=== PATIENT | male | born 1995 | race African-American/Black ===

== ENCOUNTER 2017-05-10 09:04 | Emergency (ER) | payer SELFPAY ==
[2017-05-10 10:17] VITALS: BP 142/83
--- NOTE | 2017-05-10 10:49 | RAD ---
INDICATION: Left wrist injury COMPARISON: None TECHNIQUE: AP, lateral, and oblique views were obtained. FINDINGS: The bony structures, joint spaces, and soft tissues are normal for age. IMPRESSION: NEGATIVE EXAMINATION.
--- NOTE | 2017-05-10 14:57 | ED ---
Upper Extremity Pain - HPI Summary HPI Summary: Patient presents to the ED with CC of left wrist pain after sustaining a mechanical fall yesterday with ETOH intoxication. He is able to rotate about the wrist and is able to flex and extend, but with pain. Pain is 8/0, constant and worse with movement and better with rest. Denies any visible swelling, numbness, tingling, temperature or color changes to the area. Denies any other pain, hitting his head or LOC. He has never injured the wrist before. He has been taking ibuprofen without much improvement of symptoms. - History of Current Complaint Chief Complaint: EDExtremityUpper Stated Complaint: FELL LEFT WRIST PAIN Time Seen by Provider: 05/10/17 09:43 Hx Obtained From: Patient Mechanism Of Injury: Twisted Onset/Duration: Started Hours Ago Timing: Constant Severity Initially: Moderate Severity Currently: Moderate Pain Location: Wrist Character: Aching Aggravating Factor(s): Movement, Lifting, Flexion, Extension, Internal/External Rotation Alleviating Factor(s): Rest, Ice Associated Signs & Symptoms: Positive: Negative - Risk Factors Non-Orthopedic Risk Factor: Negative DVT Risk Factors: Negative Septic Arthritis Risk Factor: Negative Compartment Syndrome Risk Factors: Pain - Allergies/Home Medications Allergies/Adverse Reactions: Allergies Allergy/AdvReac Type Severity Reaction Status Date / Time No Known Allergies Allergy Verified 06/29/15 11:41 PMH/Surg Hx/FS Hx/Imm Hx Previously Healthy: Yes - Immunization History Hx Pertussis Vaccination: No Immunizations Up to Date: Unable to Obtain/Confirm Infectious Disease History: No Infectious Disease History: Denies: History Other Infectious Disease, Traveled Outside the [place] in Last 30 Days - Family History Known Family History: Positive: Unknown - Social History Occupation: Unemployed Lives: With Family Alcohol Use: Occasionally Hx Substance Use: Yes Substance Use Type: Reports: Marijuana Hx Tobacco Use: No Smoking Status (MU): Never Smoked Tobacco Review of Systems Constitutional: Negative Cardiovascular: Negative Respiratory: Negative Positive: no symptoms reported, see HPI Positive: Arthralgia - left wrist pain Neurological: Negative Psychological: Normal All Other Systems Reviewed And Are Negative: Yes Physical Exam Triage Information Reviewed: Yes Vital Signs On Initial Exam: Initial Vitals Temp Pulse Resp BP Pulse Ox 98.0 F 60 16 120/71 100 05/10/17 09:24 05/10/17 09:24 05/10/17 09:24 05/10/17 09:24 05/10/17 09:24 Vital Signs Reviewed: Yes Appearance: Positive: Well-Appearing, Well-Nourished Skin: Positive: Warm, Skin Color Reflects Adequate Perfusion Head/Face: Positive: Normal Head/Face Inspection Eyes: Positive: EOMI, ADRIÁN, Conjunctiva Clear Neck: Positive: Supple, No Lymphadenopathy Respiratory/Lung Sounds: Positive: Clear to Auscultation, Breath Sounds Present Cardiovascular: Positive: Normal, RRR, Pulses are Symmetrical in both Upper and Lower Extremities Musculoskeletal: Positive: Pain @ - Thorough physical exam was performed, focusing on special wrist tests. Limited ROM. Pain with palpation over ulnar aspect of wrist at ulnar head. No pain with palpation over radial aspect over radial head. No pain, swelling or tenderness over anatomical snuffbox. No crepitus noted. No pain on palpation over medial or lateral elbow or forearm tenderness. Due to patient pain around injury, physical exam was limited. Pulses intact bilaterally. No temperature change, color change or pallor noted bilaterally. Sensory intact of radial, medial and ulnar nerve. Capillary refill < 2 sec. Diagnostics - Vital Signs Vital Signs Temp Pulse Resp BP Pulse Ox 05/10/17 10:15 97.8 F 78 18 142/83 98 05/10/17 09:24 98.0 F 60 16 120/71 100 - Laboratory Lab Statement: Any lab studies that have been ordered have been reviewed, and results considered in the medical decision making process. Course/Dx - Course Course Of Treatment: Based on [place] Wrist Rules, patient sent to imaging. Xray negative for fracture or other acute findings. Soft tissue swelling noted over the dorsal aspect of the wrist. Wrist was rickie wrapped to patient comfort and allow for immobilization for this period of time. Encouraged Ibuprofen 600mg three times daily with meals for pain. Return precautions given. Educated patient regarding wrist injuries, healing time and the possibility of further evaluation and imaging as orthopedist sees fit. - Diagnoses Differential Diagnosis/HQI/PQRI: Positive: Contusion, Fracture (Open), Fracture (Closed), Strain Provider Diagnoses: Wrist sprain Discharge - Discharge Plan Condition: Stable Disposition: HOME Patient Education Materials: Wrist Sprain (ED) Referrals: Maurice Jamil MD [Medical Doctor] - Dalton Fraser MD [Primary Care Provider] - Additional Instructions: Rickie wrap area for your comfort and to allow for immobilization during this time to prevent re-injury. Ibuprofen 600mg three times daily with meals for pain. Follow up with orthopedic physician in 5-7 days if symptoms worsen If numbness, tingling or decreased sensation develop, you notice color changes in your fingers or pain is worsening, come back to ED immediately for re- evaluation. Protect the area. For your comfort level, do not bear weight, pull or push until you can injury is somewhat healed. This may involve the need for immobilization or crutches for a period of time. Rest the involved area, but not too long. You may need to be off your injury for some time to allow for healing, however excessive immobilization of joints can lead to stiffness and delay healing time. Early mobilization is encouraged if it is pain-free. Ice. Not directly on the skin. Cover with a towel. Apply ice no more than 30 minutes at a time Compression: You may use and keep an rickie wrap bandage over the injury to decrease swelling. Again, this should be limited and be taken off periodically to encourage early range of motion and mobilization. Elevate: Try to elevate the injured area above the heart whenever possible.
== END 2017-05-10 11:26 | disposition home or self-care (01) ==
LOC: ED 09:04
DX: S63.502A Unspecified sprain of left wrist, initial encounter (principal); M25.532 Pain in left wrist; W19.XXXA Unspecified fall, initial encounter; Y93.9 Activity, unspecified; Y92.9 Unspecified place or not applicable
CPT/HCPCS: 99282

== ENCOUNTER 2017-09-09 13:24 | Emergency (ER) | payer SELFPAY ==
--- NOTE | 2017-09-09 15:18 | UC ---
Skin Complaint HPI - HPI Summary HPI Summary: PT HAD UNPROTECTED SEX ABOUT 1 MONTHS AGO. ABOUT 2 WEEKS AGO DEVELOPED TENDER RED ULCERATIVE LESIONS ON SCROTUM AND PENIS. ALSO HAS 1 NON TENDER PAPULAR LESION ON GLANS. PT [facility] [place] [facility] A[facility] AND HAD STI TESTING. HIV NEGATIVE. SYPHILIS NOT YET BACK. WAS DX WITH YEAST AND TX WITH OTC CREAM WHICH DID NOT WORK. TOOK ORAL FLUCONAZOLE X 1 AND IT SEEMED TO IMPROVE A BIT BUT NOT RESOLVING. NO FEVER. NO PENILE DISCHARGE. - History of Current Complaint Chief Complaint: [facility] [place] Seen by Provider: 09/09/17 14:49 Stated Complaint: PERSONAL Hx Obtained From: Patient Onset/Duration: Gradual Onset, Lasting Weeks, Still Present Timing: Constant Onset Severity: Moderate Current Severity: Moderate Pain Intensity: 0 Pain Scale Used: 0-10 Numeric Location: Discrete - penis, scrotum Character: Redness, Painful Aggravating Factor(s): Touch Alleviating Factor(s): Nothing Associated Signs & Symptoms: Positive: Rash, Tenderness. Negative: Nausea, Vomiting, Fever, Chills, Drainage - Allergy/Home Medications Allergies/Adverse Reactions: Allergies Allergy/AdvReac Type Severity Reaction Status Date / Time No Known Allergies Allergy Verified 06/29/15 11:41 Review of Systems Constitutional: Negative Skin: Rash Respiratory: Negative Cardiovascular: Negative Gastrointestinal: Negative Genitourinary: Ulceration/Lesion All Other Systems Reviewed And Are Negative: Yes PMH/Surg Hx/FS Hx/Imm Hx Previously Healthy: Yes - Surgical History Surgical History: None Surgery Procedure, Year, and Place: DENIES - Family History Known Family History: Positive: Hypertension - Social History Alcohol Use: Occasionally Substance Use Type: Marijuana Smoking Status (MU): Never Smoked Tobacco - Immunization History Vaccination Up to Date: Yes Physical Exam Triage Information Reviewed: Yes Appearance: Well-Appearing, No Pain Distress, Well-Nourished Vital Signs: Initial Vital Signs Temp 98.2 F 09/09/17 13:36 Pulse 60 09/09/17 13:36 Resp 16 09/09/17 13:36 BP 116/54 09/09/17 13:36 Pulse Ox 100 09/09/17 13:36 Vital Signs Reviewed: Yes Eyes: Positive: Conjunctiva Clear ENT: Positive: Hearing grossly normal Neck: Positive: Supple Respiratory: Positive: Normal breath sounds, No respiratory distress Cardiovascular: Positive: Pulses Normal Abdomen Description: Positive: Soft Musculoskeletal: Positive: No Edema Neurological: Positive: Alert Psychological: Positive: Age Appropriate Behavior Skin: Positive: rashes - BEEFY, ERYTHEMATOUS SHALLOW ULCERATIVE LESIONS ON SCROTUM AND LINEAR SHALLOW ULCERATIONS ON FORESKIN - TENDER. NON TENDER <1CM WHITE PAPULAR LESION CORONAL SULCUS. Course/Dx - Course Course Of Treatment: CALLED DERMATOLOGY (DR. CARDOSO) X 2. WAITING FOR CALL BACK FOR 1 HR. WILL D/C PT WITH DIFLUCAN AND COVER FOR SYPHILIS WITH BICILLIN. ADVISED PT TO CALL DERM HIMSELF FOR F/U APPT. NOTE: NO ANSWER AT DR. RYAN OR DR. GUERRERO'S. - Diagnoses Provider Diagnoses: PENILE DERMATITIS/YEAST Discharge - Discharge Plan Condition: Stable Disposition: HOME Prescriptions: Fluconazole 150 MG (NF) [Diflucan 150 mg (NF)] 150 mg PO ONCE #3 tab Patient Education Materials: Skin Yeast Infection (ED), Dermatitis (ED) Referrals: Dalton Fraser MD [Primary Care Provider] - If Needed Zahra Cardoso MD [Medical Doctor] - 2 Days Additional Instructions: WILL TREAT FOR YEAST WITH LONGER COURSE OF DIFLUCAN. WILL ALSO COVER FOR SYPHILIS WITH BICILLIN LA. CALL [facility] FOR DERMATOLOGY APPT. BE SURE TO FOLLOW-UP WITH TEST RESULTS FROM [facility] [place]. DERMATOLOGY IN [place] Dr. Aminta Guerrero Address: [address] [place] [address] [address] [place] [address] [address]. LINDA RYAN [facility] [address] [place] [address] [address] ZAHRA CARDOSO [facility], [address]; [address] [place] [address] [place] [address] Lala Asencio DERMATOLOGY IN [place] DR. MIRI LOPEZ [phone]
[2017-09-09] MEDS ORDERED: Penicillin G Benzathine 2.4MU* 2,400,000 UNITS/4 ML SYR IM ONE (15:57)
[2017-09-09 16:09] VITALS: BP 125/79
== END 2017-09-09 16:35 | disposition home or self-care (01) ==
LOC: UCEAST 13:24
DX: L30.9 Dermatitis, unspecified (principal); B37.49 Other urogenital candidiasis; F12.90 Cannabis use, unspecified, uncomplicated
CPT/HCPCS: 96372; 99212; G0463; J0561

== ENCOUNTER 2017-09-13 11:14 | Emergency (ER) | payer SELFPAY ==
[2017-09-13 11:27] VITALS: BP 124/66
--- NOTE | 2017-09-13 12:32 | UC ---
Skin Complaint HPI - HPI Summary HPI Summary: PT SEEN HERE 09/09 WITH GENITAL LESIONS. TX FOR SYPHILIS AND YEAST. STI TESTING HAD [facility] DONE [facility] [place]. PT WAS REFERRED TO DERM BUT DID NOT FOLLOW-UP THERE DUE TO COST. PT HAD DECLINED HERPES SWAB AT THE TIME BUT NOW IS REQUESTING THIS BE DONE. LESIONS ARE IMPROVING SLOWLY BUT STILL INTENSELY PAINFUL. PT APPEARS FATIGUED. STATES HE IS NOT SLEEPING DUE TO THE PAIN. - History of Current Complaint Chief Complaint: [facility] Time Seen by Provider: 09/13/17 12:18 Stated Complaint: skin complaint Hx Obtained From: Patient Onset/Duration: Lasting Weeks, Still Present Timing: Constant Onset Severity: Moderate Current Severity: Moderate Location: Discrete - GENITALS Character: Pain, Redness Aggravating Factor(s): Touch Alleviating Factor(s): Nothing Associated Signs & Symptoms: Positive: Tenderness - Allergy/Home Medications Allergies/Adverse Reactions: Allergies Allergy/AdvReac Type Severity Reaction Status Date / Time No Known Allergies Allergy Verified 09/13/17 11:23 Review of Systems Constitutional: Negative Skin: Rash Respiratory: Negative Cardiovascular: Negative Gastrointestinal: Nausea All Other Systems Reviewed And Are Negative: Yes PMH/Surg Hx/FS Hx/Imm Hx Previously Healthy: Yes - Surgical History Surgical History: None Surgery Procedure, Year, and Place: DENIES - Family History Known Family History: Positive: Hypertension - Social History Alcohol Use: Occasionally Substance Use Type: Marijuana Smoking Status (MU): Never Smoked Tobacco - Immunization History Vaccination Up to Date: Yes Physical Exam Triage Information Reviewed: Yes Appearance: Well-Nourished, Pain Distress - MOD, Other: - APPEARS FATIGUED Vital Signs: Initial Vital Signs Temp 98.2 F 09/13/17 11:23 Pulse 66 09/13/17 11:23 Resp 16 09/13/17 11:23 BP 124/66 09/13/17 11:23 Pulse Ox 100 09/13/17 11:23 Eyes: Positive: Conjunctiva Clear ENT: Positive: Hearing grossly normal Neck: Positive: Supple Respiratory: Positive: No respiratory distress, No accessory muscle use Cardiovascular: Positive: Pulses Normal Abdomen Description: Positive: Soft Musculoskeletal: Positive: No Edema Neurological: Positive: Alert Psychological: Positive: Age Appropriate Behavior Skin: Positive: Other - SHALLOW ULCERATIVE LESIONS ON FORSKIN. TENDER. Course/Dx - Course Course Of Treatment: PT DECLINED HERPES TESTING AT LAST VISIT. DID NOT SEE DERM ADVISED DUE TO COST CONSTRAINTS. TODAY IS REQUESTING HERPES TESTING. SWAB TAKEN. RX FOR VALACYCLOVIR. FOLLOW-UP DERM IF NOT IMPROVING. - Diagnoses Provider Diagnoses: GENITAL ULCERATIONS Discharge - Discharge Plan Condition: Stable Disposition: HOME Prescriptions: Acyclovir OINT 5%(NF) [Zovirax Oint 5%(NF)] 1 applic TOPICAL .SIX TIMES A DAY # 1 tube HYDROcodone/ACETAMIN 5-325 MG* [Gonzales 5-325 TAB*] 1 tab PO Q6H PRN #10 tab MDD 4 PRN Reason: Pain Valacyclovir HCl 1,000 mg PO BID #20 tab Patient Education Materials: Genital Herpes Simplex (ED) Referrals: Dalton Fraser MD [Primary Care Provider] - If Needed Zahra Bernabe MD [Medical Doctor] - 1 Week Additional Instructions: GIVEN LENGTH OF TIME OF SYMPTOMS, ANTIVIRAL UNLIKELY TO BE THAT EFFECTIVE BUT WILL GIVE ANYWAY DUE TO YOUR LEVEL OF DISCOMFORT IN CASE IT HELPS AT ALL. SWAB SENT FOR TESTING FOR HERPES. FOLLOW-UP WITH DERMATOLOGY DISCUSSED AT LAST VISIT IF NOT RESOLVING. FOLLOW-UP WITH [facility] [place] TO DISCUSS THE RESULTS OF YOUR STI TESTING. NO SEX.
== END 2017-09-13 12:50 | disposition home or self-care (01) ==
LOC: UCEAST 11:14
DX: N48.5 Ulcer of penis (principal); F12.90 Cannabis use, unspecified, uncomplicated
CPT/HCPCS: 87529; 99212; G0463